=== PATIENT | male | born 1990 | race Caucasian/White ===

== ENCOUNTER 2017-05-23 08:23 | Day surgery (SDC) | payer BC ==
[2017-05-20 09:44] VITALS: BMI 26.6
[~2017-05-23 08:23] MED LIST: DEXAMETHASONE SOD PHOSPHATE 10 MG/ML 1 ML VIAL IV ONE; HEPARIN SODIUM,PORCINE 5,000 UNIT/ML 1 ML VIAL SQ ONE; LACTATED RINGERS 1,000 ML IV SCH; LIDOCAINE 1% 20 ML VIAL (10MG/ML) FOR IV START INTRADERMA PRN; MORPHINE SULFATE 2 MG/ML SYRINGE IV PRN; ONDANSETRON 4 MG/2 ML VIAL IVP ONE; SCOPOLAMINE 1.5MG/72HR PATCH TRANSDERM ONE; ceFAZolin IN SWFI 2 GM/20 ML SYRINGE IVP ONE; metroNIDAZOLE-NS PMX 500 MG in SALINE 1 100ML.BAG IVPB ONE
--- NOTE | 2017-05-23 09:27 | P.GSHP ---
History of Present Illness H&P Date: 05/23/17 Chief Complaint: Chronic pilonidal cyst This a 27-year-old male who's had a chronic history of a pilonidal cyst. Patient resents today for excision. Patient aware the risk of surgery including wound infection. Patient's aware that he will need home wound care with daily packing after surgery. Past Medical History Past Medical History: Chest Pain / Angina, Skin Disorder Additional Past Medical History / Comment(s): migraines, 2 AV nodes from , eczema, cyst on lower spine-on antibioitics that will finish 05/21/17, History of Any Multi-Drug Resistant Organisms: None Reported Past Surgical History: Adenoidectomy, EPS, Tonsillectomy Past Anesthesia/Blood Transfusion Reactions: No Reported Reaction Smoking Status: Current every day smoker - Past Family History Mother Family Medical History: No Reported History Medications and Allergies Home Medications Medication Instructions Recorded Confirmed Type Sulfamethox-Tmp 800-160Mg [Bactrim 1 tab PO Q12HR 05/20/17 05/23/17 History DS 800-160 mg] Allergies Allergy/AdvReac Type Severity Reaction Status Date / Time No Known Allergies Allergy Verified 05/23/17 09:23 Surgical - Exam - General well developed, no distress - Eyes PERRL - ENT normal pinna - Neck no masses - Respiratory normal expansion - Cardiovascular Rhythm: regular - Abdomen Abdomen: soft, non tender Assessment and Plan Assessment: Chronically inflamed pilonidal cyst. Patient will undergo excision of pilonidal cyst.
[2017-05-23] MEDS ORDERED: fentaNYL (PF) 50 MCG/ML 2 ML AMP ONE (09:46)
[2017-05-23] MEDS ORDERED: KETOROLAC 30 MG/ML 1 ML VIAL ONE (09:46)
[2017-05-23] MEDS ORDERED: MIDAZOLAM 2 MG/2 ML VIAL ONE (09:46)
[2017-05-23] MEDS ORDERED: PROPOFOL 10 MG/ML 20 ML VIAL IV ONE (09:46)
[2017-05-23] MEDS ORDERED: BUPIVACAINE (PF) 0.25% 30 ML VIAL SQ ONE ×2 (09:46→09:53)
[2017-05-23 10:31] VITALS: TEMP 97.3
[2017-05-23 12:00] VITALS: BP 109/60; PULSE 48; RESP 18
--- NOTE | 2017-06-01 13:56 | P.OP ---
Date of Procedure: 05/23/17 Preoperative Diagnosis: Pilonidal cyst Postoperative Diagnosis: Extensive pilonidal cyst Procedure(s) Performed: Excision of extensive pilonidal cyst Anesthesia: REMY Surgeon: Jones Iniguez Estimated Blood Loss (ml): 5 Pathology: other (Pilonidal cyst) Condition: stable Disposition: PACU Description of Procedure: The patient's placed on the operating table in the prone position. He received general anesthesia. His perineum was prepped and draped usual fashion. Elliptical skin incision was made over the area upon analysis. Then using left cautery and Harmonic scissors the pilonidal cyst area was excised down level of the coccyx. This vessel measured approximately 10 x 8 x 5 cm. The Bovie hemostasis. The wound was packed with gauze. Patient top she will was sent to recovery room stable condition.
== END 2017-05-23 12:12 | disposition home or self-care (01) ==
LOC: OR 08:23
PROVIDERS: ATTEND Surgery
DX: L05.01 Pilonidal cyst with abscess (principal); L30.9 Dermatitis, unspecified; G43.909 Migraine, unspecified, not intractable, without status migrainosus; G89.29 Other chronic pain; F17.200 Nicotine dependence, unspecified, uncomplicated
CPT/HCPCS: 88304; 11771; J2250; J1644; J1100; J2405; J3010; J1885; J2704